=== PATIENT | male | born 1960 | race Caucasian/White ===

== ENCOUNTER 2019-01-18 07:23 | Day surgery (SDC) | payer MEDICAID ==
[2019-01-14 10:55] LABS: CLARITY,URINE CLEAR (Clear); COLOR,URINE YELLOW (Yellow); GLUCOSE, URINE NEGATIVE (Neg); KETONES,URINE NEGATIVE (Neg); LEUKOCYTE ESTERASE ,URINE NEGATIVE (Neg); NITRITES, URINE NEGATIVE (Neg); OCCULT BLOOD,URINE SMALL (Neg); PH,URINE 7.5 (4.8-8.0); PROTEIN,URINE NEGATIVE (Neg); UA COLLECTION TYPE CLN CATCH MIDSTREAM; UROBILINOGEN,URINE 0.2 E.U/dL (0.2-1.0)
[2019-01-14 11:00] LABS: SQUAMOUS EPITHELIAL CELL,UR FEW /LPF (FEW)
[2019-01-14 11:01] LABS: BASOPHILS # (AUTO) 0.1 X10'3 (0-0.2); BASOPHILS % (AUTO) 0.8 % (0-1); EOSINOPHILS # (AUTO) 0.2 X10'3 (0-0.9); EOSINOPHILS % (AUTO) 2.2 % (0-6); LYMPHOCYTES # (AUTO) 2.5 X10'3 (1.1-4.8); LYMPHOCYTES % (AUTO) 30.3 % (21-51); MEAN CORPUSCULAR HEMOGLOBIN 32.7 PG (27.0-31.0); MEAN CORPUSCULAR HGB CONC 34.5 g/dL (33.0-36.5); MEAN CORPUSCULAR VOLUME 94.9 FL (78-98); MEAN PLATELET VOLUME 8.1 FL (7.4-10.4); MONOCYTES # (AUTO) 0.9 X10'3 (0-0.9); MONOCYTES % (AUTO) 10.4 % (2-12); NEUTROPHILS # (AUTO) 4.6 X10'3 (1.8-7.7); NEUTROPHILS % (AUTO) 56.3 % (42-75); PRE OP HEMOGLOBIN 15.5 g/dL (14.0-17.9); PRE OP PLATELET COUNT 312 X10'3 (140-440); RED BLOOD COUNT 4.74 X10'6 (4.70-6.10); RED CELL DISTRIBUTION WIDTH 13.3 % (11.5-14.5)
[2019-01-14 11:02] LABS: BACTERIA,URINE FEW /HPF (Neg); WBC,URINE 0-4 /HPF (0-4)
[2019-01-14 11:13] LABS: ALBUMIN/GLOBULIN RATIO 1.3 (1.1-1.5); ALKALINE PHOSPHATASE 85 IU/L (46-116); BLOOD UREA NITROGEN 9 MG/DL (7-18); CALCIUM 8.9 MG/DL (8.5-10.1); CHLORIDE 106 MMOL/L (99-107); CREATININE 0.82 MG/DL (0.60-1.10); PRE OP ALT 25 U/L (30-65); PRE OP ANION GAP 8 (8-16); PRE OP AST 15 U/L (10-37); PRE OP BILIRUB, TOTAL 0.3 MG/DL (0.0-1.0); PRE OP GLUCOSE 86 MG/DL (70-104); PRE OP POTASSIUM 4.2 MMOL/L (3.4-5.1); PRE OP SODIUM 143 MMOL/L (135-145); TOTAL PROTEIN 7.2 G/DL (6.4-8.2); eGFR > 90 ML/MIN
[~2019-01-18] VITALS: Ht 177.8 cm; Wt 70.0 kg
[2019-01-18] VITALS (10 sets, daily range): BP systolic 122–139; BP diastolic 74–97
[~2019-01-18 07:23] MED LIST: MESSAGE TO NURSING IV ONE; NO HOME MEDS; albuterol 2.5 MG/3 ML nebule NEB ONE; ceFOXitin 2 GM ADDvantage bag 100 ML IV ONE; cefazolin/dext.iso 2gm/50ml 50 ML IV ONE; famotidine 20mg tablet PO ONE; ringers solution, lacted 1,000 ML IV SCH
[2019-01-18] MEDS ORDERED: BUPIVAcaine/PF 2.5 mg/ml (0.25%) 30ml vial ONE (10:41)
[2019-01-18] MEDS ORDERED: BUPIVACAINE liposomal/PF 13.3 MG/ML vial IM ONE (10:41)
[2019-01-18] MEDS ORDERED: sevoflurane 250ml liquid IH ONE (11:01)
[2019-01-18] MEDS ORDERED: fentaNYL/PF 50MCG/1 ML 2ML syringe ONE (11:05)
[2019-01-18] MEDS ORDERED: midazolam 2 mg/2 ml injection ONE (11:05)
[2019-01-18] MEDS ORDERED: propofol inj 20 ML IV ONE (11:07)
[2019-01-18] MEDS ORDERED: ringers solution, lacted 1,000 ML IV SCH (11:37)
[2019-01-18] MEDS ORDERED: meperidine/PF 25mg/ml syringe IV PRN ×3 (11:40)
[2019-01-18] MEDS ORDERED: morphine 4 MG/ML inj SYRINge IV PRN ×2 (11:40)
[2019-01-18] MEDS ORDERED: proCHLORperazine 10 MG/2 ml inj IV PRN (11:40)
[2019-01-18] MEDS ORDERED: ondansetron/PF 4mg/2ml inj IV PRN (11:40)
[2019-01-18] MEDS ORDERED: ONDA4TAB6 PO (21:54)
== END 2019-01-18 13:35 | disposition home or self-care (01) ==
LOC: PAS 07:23
PROVIDERS: ATTEND Surgery
DX: K64.3 Fourth degree hemorrhoids (principal); K64.4 Residual hemorrhoidal skin tags; F17.210 Nicotine dependence, cigarettes, uncomplicated; F32.9 Major depressive disorder, single episode, unspecified; F41.9 Anxiety disorder, unspecified; M19.90 Unspecified osteoarthritis, unspecified site; Z88.2 Allergy status to sulfonamides; Z88.1 Allergy status to other antibiotic agents; Z98.890 Other specified postprocedural states; Z79.899 Other long term (current) drug therapy
CPT/HCPCS: 36415; 46255; 80053; 81001; 82948; 85025; 93005; 94640; 94760; A6224; C9290; J2175; J2250; J2704; J3010; J3490; A4215; A4618; A6449; A7000; J0694; J7120

== ENCOUNTER 2019-01-18 19:04 | Emergency (ER) | payer MEDICAID ==
[~2019-01-18] VITALS: Ht 177.8 cm; Wt 54.5 kg
[~2019-01-18 19:04] MED LIST changes: -MESSAGE TO NURSING IV ONE; -albuterol 2.5 MG/3 ML nebule NEB ONE; -ceFOXitin 2 GM ADDvantage bag 100 ML IV ONE; -cefazolin/dext.iso 2gm/50ml 50 ML IV ONE; -famotidine 20mg tablet PO ONE; -ringers solution, lacted 1,000 ML IV SCH
[2019-01-18] MEDS ORDERED: ondansetron 4mg rapidly disintigrating tab PO ONE ×2 (20:45→22:55)
--- NOTE | 2019-01-18 21:24 | NUR ---
assessed abdomen, slightly tender, bowel sounds present. pt states, having pressure in rectum like its blocked.
--- NOTE | 2019-01-18 21:26 | NUR ---
dr. adkins at bedside
--- NOTE | 2019-01-18 21:29 | NUR ---
pt states, hasnt past any gas since the procedure today
[2019-01-18] MEDS ORDERED: morphine 4 MG/ML inj SYRINge IM ONE (21:30)
[2019-01-18 21:32] VITALS: BP 141/82
[2019-01-18] MEDS ORDERED: simethicone 125mg capsule PO ONE (21:50)
[2019-01-18] MEDS ORDERED: simethicone 125mg capsule PO SCH (21:50)
[2019-01-18] MEDS ORDERED: ONDA4TAB6 PO (21:54)
--- NOTE | 2019-01-18 22:46 | NUR ---
PT STATES, THE MYLICON REALLY HELPED. NOT HAVING ANY STABBING PAIN IN ABDOMEN. PT STATES, I WILL TRY THE MORPHINE NOW. MS 4MG IM GIVEN IN THE RIGHT GLUTEAL. CONTINUE TO OBSERVE PT.
--- NOTE | 2019-01-18 22:59 | NUR ---
PT C/O NAUSEA, INFORMED DR. SHEEHAN PLEASE SEE NEW ORDERS.
== END 2019-01-19 00:21 | disposition home or self-care (01) ==
LOC: ER 19:05
DX: K56.7 Ileus, unspecified (principal); Z98.890 Other specified postprocedural states; Z88.0 Allergy status to penicillin; Z88.1 Allergy status to other antibiotic agents; Z79.899 Other long term (current) drug therapy
CPT/HCPCS: 74018; 96372; 99284; J2270